=== PATIENT | male | born 1980 | race Caucasian/White ===

== ENCOUNTER → 2017-03-30 | Outpatient (CLI) | payer MEDICAID ==
[~2017-03-30] MED LIST: AMOXICOT250 MG/5 M PO; CORTISPORIN (GE10 M1 OT; MIRALAX17 GM/PACK PO; PHENERGAN 25MG.25 M1 PO; ZITHROMAX Z PA250 MG PO
== END ==
LOC: LAB 13:09
DX: E03.8 Other specified hypothyroidism (principal)